=== PATIENT | female | born 1995 | race Caucasian/White ===

== ENCOUNTER 2016-05-29 21:15 | Emergency (ER) | payer SELFPAY ==
[~2016-05-29] VITALS: Ht 157.5 cm; Wt 52.2 kg
[~2016-05-29 21:15] MED LIST: BIRTH CONTROL; CLON0.5T3 PO; FLUC200T45 PO; LISD30CA PO; METR500T PO; ONDA-42 SL; OXCA300T PO; TRAM-21 PO; TRAM50TA2 PO
--- NOTE | 2016-05-29 23:01 | ED Headache ---
General Chief Complaint: Head/Cervical Problems Stated Complaint: MIGRAINE;NUMBNESS IN HANDS Nursing Triage Note: PT REPORTS WAKING UP THIS AM WITH A MIGRAINE. SHE REPORTS THAT WHEN SHE WOKE UP SHE HAD FACIAL DROOPING, SLURRED SPEECH, R ARM NUMBNESS. SHE REPORTS SHE THEN WENT BACK TO SLEEP, BUT WHEN SHE WOKE UP AGAIN SHE STILL HAD A MIGRAINE. SHE STATES SHE GOOGLED STROKE SYMPTOMS AND WAS SCARED THAT SHE HAD A STROKE. PT A&O X 4 AT THIS TIME. SHE DENIES TAKING ANY MEDS. 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 STATES HER LAST HEADACHE WAS 3-4 WEEKS AGO SHE STATES SHE USED TO GET THEM EVERY 2 WEEKS, BUT NOW GETS THEM EVERY 2 MONTHS , AND ALWAYS LAST 2 DAYS STATES THAT HEADACHES IN THE PAST HAVE NOT CAUSED FACIAL DROOP OR SLURRED SPEECH OR NUMBNESS, BUT OTHERWISE THE HEADACHE IS EXACTLY THE SAME ALL OF HER PREVIOUS HEADACHES AND IS IN EXACT SAME AREA. STATES SHE HAS BEEN GOOGLING HER SYMPTOMS AND GOT SCARED THAT SHE MIGHT HAVE HAD A STROKE. STATES SHE HAS A FRIEND WHO GETS MIGRAINES JUST LIKE THIS. PCP: [facility]. PT'S HOME IS IN [place] Allergies and Home Medications Allergies Coded Allergies: No Known Drug Allergies (Unverified , 01/16/14) Home Medications (Reported) Butalb/Acetaminophen/Caffeine 1 Each Capsule #10 1-2 EACH PO Q6H PRN PRN HEADACHE Prescribed by: DICKSON RAZO on 05/30/16 0006 Lisdexamfetamine Dimesylate 30 Mg Capsule 30 MG PO DAILY (Reported) Ondansetron 4 Mg Tab.rapdis #10 4 MG PO Q4H Prescribed by: DICKSON RAZO on 05/30/16 0006 Constitutional: no symptoms reported Eyes: No Symptoms Reported Ears, Nose, Mouth, Throat: no symptoms reported Respiratory: no symptoms reported Cardiovascular: no symptoms reported Gastrointestinal: no symptoms reported Genitourinary: no symptoms reported Musculoskeletal: no symptoms reported Skin: no symptoms reported Psychiatric/Neurological: See HPI Headache Numbness Paresthesia Tingling Past Lphanar-Vvjfhs-Ukfksr Hx Patient Social History Alcohol Use: Denies Use Recreational Drug Use: No Smoking Status: Never a Smoker Recent Foreign Travel: No Contact w/Someone Who Travel: No Recent Infectious Disease Expo: No Recent Hopitalizations: No Physical Abuse Screen: No Sexual Abuse: No Immunizations Up To Date Tetanus Booster (TDap): Less than 5yrs PED Vaccines UTD: Yes Seasonal Allergies Seasonal Allergies: Yes Surgeries HX Surgeries: No Respiratory Hx Respiratory Disorders: Yes Respiratory Disorders: Asthma Cardiovascular Hx Cardiac Disorders: No Neurological Hx Neurological Disorders: Yes (X1 SEIZURE WITH A HEAD CONCUSSION) Neurological Disorders: Concussion, Headaches /Migraines Reproductive System Hx Reproductive Disorders: No Sexually Transmitted Disease: No HIV/AIDS: No Genitourinary Hx Genitourinary Disorders: Yes Genitourinary Disorders: Bladder Infection Gastrointestinal Hx Gastrointestinal Disorders: No Musculoskeletal Hx Musculoskeletal Disorders: No Endocrine Hx Endocrine Disorders: No HEENT HX ENT Disorders: No Cancer Hx Cancer: No Psychosocial Hx Psychiatric Problems: Yes Behavioral Health Disorders: ADD/ADHD, Anxiety Integumentary HX Skin/Integumentary Disorder: No Skin/Integumentary Disorders: Recent Skin Changes Physical Exam Vital Signs Vital Sign - Last 12Hours 05/29/16 21:54 Temp 98.1 Pulse 71 Resp 16 B/P 108/78 Pulse Ox 98 O2 Delivery Room Air Capillary Refill : Less Than 3 Seconds General Appearance: WD/WN no apparent distress other (SMILING, LAUGHING WITH ROOMMATE AND MALE FRIEND AND CHILD IN ROOM. DOES NOT APPEAR TO BE IN ANY DISCOMFORT AND DOES NOT APPEAR ILL. )No thin HEENT: PERRL/EOMI normal ENT inspection TMs normal pharynx normalNo photophobia Neck: non-tender full range of motion supple normal inspectionNo lymphadenopathy (R), No lymphadenopathy (L) Cardiovascular: regular rate, rhythm no murmur Respiratory: normal breath sounds no respiratory distress no accessory muscle use Gastrointestinal: normal bowel sounds non tender soft Extremities: normal inspection Psychiatric: alert oriented x 3 Crainal Nerves: normal hearing normal speech PERRL Coordination/Gait: normal finger to nose normal gait negative Romberg's sign Motor/Sensory: no motor deficit no sensory deficit no pronator drift Skin: normal color warm/dryNo rash Progress/Results/Core Measures Results/Orders Lab Results Laboratory Tests Test 05/29/16 22:30 Range/Units Ur Tricyclic Antidepressants Screen NEGATIVE NEGATIVE Urine Amphetamines Screen POSITIVE H NEGATIVE Urine Barbiturates Screen NEGATIVE NEGATIVE Urine Benzodiazepines Screen POSITIVE H NEGATIVE Urine Cannabinoids Screen POSITIVE H NEGATIVE Urine Cocaine Screen NEGATIVE NEGATIVE Urine Methadone Screen NEGATIVE NEGATIVE Urine Methamphetamines Screen NEGATIVE NEGATIVE Urine Opiates Screen POSITIVE H NEGATIVE Urine Oxycodone Screen NEGATIVE NEGATIVE Urine Phencyclidine Screen NEGATIVE NEGATIVE Urine Test NEGATIVE NEGATIVE Urine Propoxyphene Screen NEGATIVE NEGATIVE My Orders Orders-DICKSON RAZO DO Drug Screen Stat (Urine) (05/29/16 22:30) Ct Head Wo (05/29/16 22:30) Hcg,Qualitative Urine (05/29/16 22:34) Ondansetron Oral Dissolve Tab (Zofran (05/30/16 00:15) Ketorolac Injection (Toradol Injection) (05/30/16 00:15) Diphenhydramine Injection (Benadryl Inje (05/30/16 00:15) Medications Given in ED Current Medications Medications Dose Ordered Sig/Afua Route Start Time Stop Time Status Last Admin Dose Admin Diphenhydramine HCl 50 mg ONCE ONCE IM 05/30/16 00:15 05/30/16 00:16 DC 05/30/16 00:21 50 MG Ketorolac Tromethamine 60 mg ONCE ONCE IM 05/30/16 00:15 05/30/16 00:16 DC 05/30/16 00:21 60 MG Ondansetron HCl 4 mg ONCE ONCE PO 05/30/16 00:15 05/30/16 00:16 DC 05/30/16 00:20 4 MG Vital Signs/I&O Vital Sign - Last 12Hours 05/29/16 05/30/16 05/30/16 05/30/16 21:54 00:21 00:21 00:31 Temp 98.1 98.1 98.1 98.1 Pulse 71 71 Resp 16 16 B/P 108/78 Pulse Ox 98 98 O2 Delivery Room Air Blood Pressure Mean: 88 Progress Note : Progress Note HEADACHE IMPROVED AT DISMISSAL Departure Impression Impression: Primary Impression: Atypical migraine Disposition: HOME, SELF-CARE Condition: Improved Departure-Patient Inst. Referrals: [facility] (PCP/Family) Primary Care Physician Patient Instructions: Migraine Headache (DC) Add. Discharge Instructions: LOTS OF CLEAR LIQUIDS IBUPROFEN 800 MG EVERY 6 HOURS NEEDED FOR PAIN FOLLOW UP WITH [facility] THIS WEEK FOR FURTHER CARE All discharge instructions reviewed with patient and/or family. Voiced understanding. Scripts Ondansetron (Zofran Odt)4 Mg Tab.rapdis4 Mg PO Q4H Nausea/Vomiting #10 TAB Prov:DICKSON RAZO DO 05/30/16 Butalb/Acetaminophen/Caffeine (Esgic Capsule)1 Each Capsule1-2 Each PO Q6H PRN HEADACHE #10 CAP Prov:DICKSON RAZO DO 05/30/16 Work/School Note: School/Childcare Release Date Seen in the Emergency Department: May 29, 2016 DICKSON RAZO DO May 29, 2016 23:01
[2016-05-30] MEDS ORDERED: BUTA1CAP45 PO (00:06)
[2016-05-30] MEDS ORDERED: ONDA4TAB8 PO (00:06)
[2016-05-30] MEDS ORDERED: KETOROLAC 60 MG/2 ML VIAL IM ONE (00:15)
[2016-05-30] MEDS ORDERED: diphenhydrAMINE 50 MG/ML INJ (BENADRYL) IM ONE (00:15)
[2016-05-30] MEDS ORDERED: ONDANSETRON 4 MG (ZOFRAN) ORAL DISSOLVE TAB PO ONE (00:15)
[2016-05-30 00:31] VITALS: BP 108/78
--- NOTE | 2016-05-30 07:11 | Diagnostic Imaging Report ---
PROCEDURE: CT head without contrast. TECHNIQUE: Multiple contiguous axial images were obtained through the brain without the use of intravenous contrast. INDICATION: Headache. COMPARISON: None. FINDINGS: No intracranial hemorrhage, mass effect, hydrocephalus or extra-axial fluid collections. No CT evidence of acute infarction. The orbits and visualized paranasal sinuses are unremarkable. Osseous structures are intact. IMPRESSION: Negative CT head. Dictated by: Dictated on workstation # [id number]
== END 2016-05-30 00:31 | disposition home or self-care (01) ==
LOC: EDUNIT# 21:15 → ER 21:16
DX: G43.909 Migraine, unspecified, not intractable, without status migrainosus (principal); R47.81 Slurred speech; R29.810 Facial weakness; R20.0 Anesthesia of skin
CPT/HCPCS: 70450; 80306; 84703; 96372